=== PATIENT | female | born 1950 | race Caucasian/White ===

== ENCOUNTER → 2017-05-20 | Outpatient (CLI) | payer MEDICARE ==
--- NOTE | 2017-05-20 10:02 | BD ---
EXAMINATION TYPE: MG DEXA axial skeleton. DATE OF EXAM: 05/20/2017 COMPARISON: NONE CLINICAL HISTORY: Postmenopausal female Height: 61.2 IN Weight: 110 LBS FRAX RISK QUESTIONS: Alcohol (3 or more units per day): NO Family History (Parent hip fracture): NO Glucocorticoids (More than 3mos): NO (Ex: prednisone, prednisolone, methylprednisolone, dexamethasone, and hydrocortisone). History of Fracture in Adulthood: NO Secondary Osteoporosis: 1. Type 1 Diabetes: NO 2. Hyperthyroidism: NO 3. Menopause before 45: YES AGE 46 4. Malnutrition: NO 5. Chronic liver disease: NO Rheumatoid Arthritis: NO Current Tobacco Use: NO RISK FACTORS HISTORY OF: Active: YES Postmenopausal woman: AGE 46 MEDICATIONS: Thyroid Medications: YES Which medication: ARMOUR How Lon YRS Additional Medications: CALCIUM, VIT D, ARMOUR, EXAM MEASUREMENTS: Bone mineral densitometry was performed using the [employer] System. Bone mineral density as measured about the Lumbar spine is: ----- L1-L4(G/cm2): 0.914 T Score Values are as follows: ----- L2: -1.9 ----- L3: -2.2 ----- L4: -3.0 ----- L1-L4: -2.2 Bone mineral density BASELINE Bone mineral density about the R hip (g/cm2): 0.748 Bone mineral density about the L hip (g/cm2): 0.727 T Score values are as follows: -----R Neck: -2.1 -----L Neck: -2.2 -----R Total: -1.9 -----L Total: -2.0 Bone mineral density BASELINE IMPRESSION: Osteoporosis (T Score less than -2.5) as noted by T Score values at the There is increased fracture risk and therapy is usually indicated based on age. Re-Screen 1-2 years. Major osteoporotic fracture risk: 10.6% Hip fracture risk: 2.0% NOTE: T-SCORE=SD OF THE YOUNG ADULT MEAN.
--- NOTE | 2017-05-21 09:50 | MM ---
Reason for exam: screening (asymptomatic). Last mammogram was performed 2 years and 3 months ago. History: Patient is postmenopausal. Family history of breast cancer in mother at age 85 and breast cancer in paternal aunt at age 90. Physical Findings: A clinical breast exam by your physician is recommended on an annual basis and results should be correlated with mammographic findings. MG 3D Screening Mammo W/Cad Bilateral CC and MLO view(s) were taken. Prior study comparison: February 13, 2015, bilateral MG screening mammo w CAD. August 12, 2014, right breast MG diagnostic mammo RT w CAD. December 22, 2013, [facility] DIGITAL RIGHT MAMMOGRAM w/CAD. The breast tissue is heterogeneously dense. This may lower the sensitivity of mammography. Finding: There are typically benign dystrophic, round calcifications in both breasts. There is no discrete abnormality. ASSESSMENT: Benign, BI-RAD 2 RECOMMENDATION: Routine screening mammogram of both breasts in 1 year.
== END | disposition home or self-care (01) ==
LOC: RADMAMWWP 08:50
PROVIDERS: ATTEND Family Medicine
DX: Z12.31 Encounter for screening mammogram for malignant neoplasm of breast (principal); M81.0 Age-related osteoporosis without current pathological fracture; Z78.0 Asymptomatic menopausal state
CPT/HCPCS: 77080; 77063; G0202

== ENCOUNTER → 2019-05-24 | Outpatient (CLI) | payer MEDICARE ==
--- NOTE | 2019-05-24 12:07 | BD ---
EXAMINATION TYPE: Axial Bone Density DATE OF EXAM: 05/24/2019 COMPARISON: 05/20/2017 CLINICAL HISTORY: M 83.0 Height: 61 IN Weight: 113 LBS FRAX RISK QUESTIONS: Secondary Osteoporosis: 3. Menopause before 45: YES AGE 46 RISK FACTORS HISTORY OF: Active: YES Postmenopausal woman: AGE 46 MEDICATIONS: Thyroid Medications: YES Which medication: ARMOUR How Lon YEARS Additional Medications: VIT K, VIT D,MULTI VIT, ARMOUR, EXAM MEASUREMENTS: Bone mineral densitometry was performed using the [employer] System. Bone mineral density as measured about the Lumbar spine is: ----- L1-L4(G/cm2): 0.905 T Score Values are as follows: ----- L2: -2.3 ----- L3: -1.9 ----- L4: -3.1 ----- L1-L4: -2.3 Bone mineral density has: Decreased -0.8% since study of: 05/20/2017 Bone mineral density about the R hip (g/cm2): 0.731 Bone mineral density about the L hip (g/cm2): 0.761 T Score values are as follows: -----R Neck: -2.2 -----L Neck: -2.0 -----R Total: -2.0 -----L Total: -2.0 Bone mineral density has: Decreased -1.7% since study of: 05/20/2017 IMPRESSION: Osteopenia (T Score between -2.5 and -1). There is slightly increased risk of fracture and the patient may be considered for treatment. Re-Screen 2-5 years. NOTE: T-SCORE=SD OF THE YOUNG ADULT MEAN.
--- NOTE | 2019-05-24 13:29 | MM ---
Reason for exam: screening (asymptomatic). Last mammogram was performed 2 years ago. History: Patient is postmenopausal. Family history of breast cancer in mother at age 85 and breast cancer in paternal aunt at age 90. Physical Findings: A clinical breast exam by your physician is recommended on an annual basis and results should be correlated with mammographic findings. MG 3D Screening Mammo W/Cad Bilateral CC and MLO view(s) were taken. Prior study comparison: May 20, 2017, bilateral MG 3d screening mammo w/cad. February 13, 2015, bilateral MG screening mammo w CAD. The breast tissue is heterogeneously dense. This may lower the sensitivity of mammography. Chronically inverted nipple on the right. Scattered dystrophic and oil cyst calcifications. Nodular asymmetric density medial anterior left breast may be layered when correlating with 3D. Not well seen on MLO. ASSESSMENT: Incomplete: need additional imaging evaluation, BI-RAD 0 RECOMMENDATION: Special view mammogram of the left breast. If lesion persists on supplemental views, image directed ultrasound is recommended. [facility] will attempt to contact patient to return for supplemental views and ultrasound if indicated.
== END | disposition home or self-care (01) ==
LOC: RADMAMWWP 08:40
PROVIDERS: ATTEND Family Medicine
DX: Z12.31 Encounter for screening mammogram for malignant neoplasm of breast (principal); M85.89 Other specified disorders of bone density and structure, multiple sites; Z78.0 Asymptomatic menopausal state
CPT/HCPCS: 77063; 77067; 77080

== ENCOUNTER → 2023-07-01 | Outpatient (CLI) | payer MEDICARE ==
--- NOTE | 2023-07-02 19:07 | MM ---
Reason for Exam: Screening (asymptomatic). Last mammogram was performed 4 year(s) and 2 month(s) ago. Patient History: Menarche at age 14. First Full-Term at age 25. Postmenopausal. Paternal aunt had breast cancer, age 90. Mother had breast cancer, age 85. Risk Values: Kristi 5 year model risk: 3.3%. NCI Lifetime model risk: 9.1%. Prior Study Comparison: 05/20/2017 Bilateral Screening Mammogram, [facility]. 05/24/2019 Bilateral Screening Mammogram, [facility]. 05/26/2019 Left Diagnostic Mammogram, [facility]. Tissue Density: The breast tissue is heterogeneously dense. This may lower the sensitivity of mammography. Findings: Analyzed By CAD. Pattern appears symmetrical. Multiple benign-appearing spherical calcifications are present. No suspicious groups of microcalcifications, spiculated or lobular masses, architectural distortion or other secondary signs of malignancy are mammographically apparent. Overall Assessment: Benign, BI-RAD 2 Management: Screening Mammogram of both breasts in 1 year. A negative mammogram report should not preclude additional follow up of suspicious palpable abnormalities. Patient should continue monthly self breast exam. A clinical breast exam by your physician is recommended on an annual basis and results should be correlated with mammographic findings. Electronically signed and approved by: Jesus Whitfield D.O. Radiologis
== END | disposition home or self-care (01) ==
LOC: RADMAMWWP 09:17
PROVIDERS: ATTEND Family Medicine
DX: Z12.31 Encounter for screening mammogram for malignant neoplasm of breast (principal); Z78.0 Asymptomatic menopausal state; Z80.3 Family history of malignant neoplasm of breast
CPT/HCPCS: 77063; 77067